=== PATIENT | female | born 1945 | race Caucasian/White ===

== ENCOUNTER 2019-11-18 07:14 | Emergency (ER) | payer MEDICARE, BC ==
[~2019-11-18] VITALS: Ht 162.6 cm; Wt 58.2 kg
[2019-11-18 07:21] VITALS: Ht 162.6 cm; Wt 58.2 kg
[2019-11-18] MEDS ORDERED: TRAZODONE HCL150 MG PO (07:35)
[2019-11-18] MEDS ORDERED: OMEPRAZOLE20 M1 PO (07:36)
[2019-11-18] MEDS ORDERED: ZETIA10 MG PO (07:36)
[2019-11-18] MEDS ORDERED: ZOVIRAX200 MG PO (07:37)
[2019-11-18] MEDS ORDERED: LISINOPRIL30 MG PO (07:38)
[2019-11-18] MEDS ORDERED: LIPITOR40 MG PO (07:38)
[2019-11-18] MEDS ORDERED: JANTOVEN5 MG PO (07:39)
[2019-11-18] MEDS ORDERED: BAYER CHEWABLE81 MG PO (07:40)
[2019-11-18] MEDS ORDERED: COUMADIN7.5 MG PO (07:40)
[2019-11-18] MEDS ORDERED: METOPROLOL TART25 MG PO (07:40)
[2019-11-18] MEDS ORDERED: TIKOSYN250 MCG PO (07:41)
[2019-11-18 08:15] VITALS: BP 172/89
== END 2019-11-18 08:16 | disposition home or self-care (01) ==
LOC: D.ER 07:14
DX: F41.9 Anxiety disorder, unspecified (principal); I10 Essential (primary) hypertension; I25.2 Old myocardial infarction; Z95.5 Presence of coronary angioplasty implant and graft; I48.91 Unspecified atrial fibrillation; M54.9 Dorsalgia, unspecified; K21.9 Gastro-esophageal reflux disease without esophagitis